=== PATIENT | female | born 1985 | race Caucasian/White ===

== ENCOUNTER 2016-05-30 14:23 | Emergency (ER) | payer OTHER ==
[~2016-05-30] VITALS: Ht 162.6 cm; Wt 101.7 kg
[~2016-05-30 14:23] MED LIST: ALBUTEROL SULF8.5 GM IH; ALEVE220 MG PO; AMOXICILLIN500 M1 PO; AMOXICILLIN500 MG PO; ATARAX10 MG PO; BUSPAR10 MG PO; BUSPAR5 MG PO; CEFDINIR300 MG PO; CIPRODEX OTIC7.5 ML RIGHT EAR; FLEXERIL10 MG PO; Flintstones PO; IMITREX6 MG/0.5 M SC; INDOCIN25 MG PO; LEXAPRO10 MG PO; MOTRIN600 MG PO; MOTRIN800 MG PO; NAPROSYN500 MG PO; NAPROXEN250 MG PO; NAPROXEN500 MG PO; NORCO 5/3251 TABLET PO; PEN-VEE K,VEET500 MG PO; PROAIR HFA8.5 GM IH; PROTONIX40 MG PO; TESSALON PERLE100 MG PO; TRILEPTAL300 MG PO; ULTRACET1 TABLET PO; ULTRAM50 MG PO; ZANTAC300 MG PO; ZOFRAN ODT4 MG PO; ZOFRAN4 MG PO
[2016-05-30 14:55] LABS: ADD MIUA? YES; BILIRUBIN NEGATIVE; BLOOD NEGATIVE; COLOR YELLOW ((YELLOW)); GLUCOSE (STRIP) NEGATIVE; KETONES NEGATIVE; LEUKOCYTES TRACE; NITRITE NEGATIVE; PROTEIN (STRIP) NEGATIVE; SPECIFIC GRAVITY 1.019 (1.000-1.030); UROBILINOGEN 0.2 MG/DL (0.2-1.0)
[2016-05-30 15:04] LABS: HEMATOCRIT 38.5 % (36.0-46.0); MCH 29.3 PG (29.0-34.0); MCHC 33.5 G/DL (30.0-36.0); MCV 87.5 FL (83-99); MEAN PLAT.VOLUME 11.9 uM^3 (9.5-12.4); PLATELET COUNT 225 K/uL (156-360); RBC DIS.WIDTH-SD 37.6 % (39-53); WHITE BLOOD COUNT 8.8 K/uL (4.1-10.2)
[2016-05-30 15:12] LABS: CHLORIDE 107 mEq/L (99-109); POTASSIUM 3.4 mEq/L (3.7-5.4); SODIUM 141 mEq/L (136-147)
[2016-05-30 15:14] LABS: BACTERIA RARE /HPF; CALCIUM OXALATE CRYSTALS 1+ /HPF; EPITHELIAL CELLS 1+ /HPF; HYALINE CASTS 0-5 /LPF; MUCUS TRACE /LPF; RED BLOOD CELLS 0-5 /HPF (0-5); UCUL ADDED? NO; WHITE BLOOD CELLS 0-5 /HPF (0-5)
[2016-05-30 15:14] LABS: GLUCOSE 101 mg/dL (70-99)
[2016-05-30 15:15] LABS: ANION GAP 8 MEQ/L (2-14)
[2016-05-30 15:16] LABS: TOTAL BILIRUBIN 0.3 mg/dL (0.0-1.0)
[2016-05-30 15:18] LABS: ALKALINE PHOSPHATASE 71 IU/L (3-129); GFR ESTIMATE (CALCULATED) > 59 mL/min/
[2016-05-30 15:19] LABS: UREA NITROGEN (BUN) 10 mg/dL (9-23)
[2016-05-30 15:30] LABS: QUANTITATIVE HCG < 4.0 MIU/ML
[2016-05-30 17:40] VITALS: BP 106/65
== END 2016-05-30 17:40 | disposition home or self-care (01) ==
LOC: EME 14:23
DX: R10.31 Right lower quadrant pain (principal)
CPT/HCPCS: 76856; 80053; 81003; 84702; 85027; 99281; 99284

== ENCOUNTER 2017-02-05 13:20 | Emergency (ER) | payer OTHER ==
[~2017-02-05] VITALS: Ht 162.6 cm; Wt 94.0 kg
[2017-02-05 13:47] VITALS: BP 90/72
== END 2017-02-05 15:28 | disposition home or self-care (01) ==
LOC: EME 13:20
DX: J06.9 Acute upper respiratory infection, unspecified (principal); Z91.040 Latex allergy status; Z88.6 Allergy status to analgesic agent
CPT/HCPCS: 87651 90; 99281; 99284

== ENCOUNTER 2017-09-08 23:45 | Emergency (ER) | payer OTHER ==
[~2017-09-08] VITALS: Ht 162.6 cm; Wt 95.1 kg
[2017-09-09 03:24] LABS: BASOPHIL (%) 0.3 % (0-1); EOSINOPHIL (%) 0.1 % (0-5); HEMATOCRIT 39.2 % (36.0-46.0); HEMOGLOBIN 13.6 G/DL (11.9-15.5); IMMATURE GRANULOCYTE (%) 0.3 % (0.0-0.7); LYMPHOCYTE (%) 12.1 % (15-42); LYMPHOCYTE COUNT 1.4 K/uL (1.0-2.8); MCH 30.3 PG (29.0-34.0); MCHC 34.7 G/DL (30.0-36.0); MCV 87.3 FL (83-99); MONOCYTE (%) 7.4 % (3-12); MONOCYTE COUNT 0.9 K/uL (0-0.8); NEUTROPHIL (%) 79.8 % (45-76); NEUTROPHIL COUNT 9.3 K/uL (1.8-6.4); PLATELET COUNT 220 K/uL (156-360); RBC DIS.WIDTH-CV 11.9 % (11.8-14.6); RBC DIS.WIDTH-SD 38.4 % (39-53); RED BLOOD COUNT 4.49 M/uL (3.80-5.20); WHITE BLOOD COUNT 11.7 K/uL (4.1-10.2)
[2017-09-09 03:35] LABS: CHLORIDE 104 mEq/L (99-109); POTASSIUM 3.6 mEq/L (3.7-5.4); SODIUM 136 mEq/L (136-147)
[2017-09-09 03:37] LABS: GLUCOSE 108 mg/dL (70-99); TOTAL PROTEIN 7.1 g/dL (6.4-8.3)
[2017-09-09 03:39] LABS: TOTAL BILIRUBIN 0.4 mg/dL (0.0-1.0)
[2017-09-09 03:41] LABS: ALKALINE PHOSPHATASE 66 IU/L (3-129); CREATININE 0.8 mg/dL (0.6-1.3); GFR ESTIMATE (CALCULATED) > 59 mL/min/
[2017-09-09 03:42] LABS: UREA NITROGEN (BUN) 10 mg/dL (9-23)
[2017-09-09 03:43] LABS: AST (GOT) 16 IU/L (2-34)
[2017-09-09 03:44] LABS: ALT (GPT) 13 IU/L (3-49)
[2017-09-09 05:52] VITALS: BP 111/76
== END 2017-09-09 05:53 | disposition home or self-care (01) ==
LOC: EME 23:45
PROVIDERS: Emergency Medicine
DX: R11.2 Nausea with vomiting, unspecified (principal); R51 Headache; R53.1 Weakness; J02.9 Acute pharyngitis, unspecified; R05 Cough; Z90.710 Acquired absence of both cervix and uterus; Z90.49 Acquired absence of other specified parts of digestive tract
CPT/HCPCS: 70450; 80053; 85025; 87651 90; 99281; 99284; J2765; J7030

== ENCOUNTER 2017-10-13 21:48 | Emergency (ER) | payer OTHER ==
[~2017-10-13] VITALS: Ht 162.6 cm; Wt 96.2 kg
[2017-10-14 00:39] VITALS: BP 120/88
== END 2017-10-14 00:40 | disposition home or self-care (01) ==
LOC: EME 21:48
PROC: 2W3RX1Z Immobilization of Left Lower Leg using Splint (ICD-10-PCS; principal; 2017-10-13)
DX: S96.912A Strain of unspecified muscle and tendon at ankle and foot level, left foot, initial encounter (principal); W10.9XXA Fall (on) (from) unspecified stairs and steps, initial encounter
CPT/HCPCS: 73610; 99281; 99283